=== PATIENT | male | born 1955 | race Caucasian/White ===

== ENCOUNTER 2020-01-23 09:35 | Day surgery (SDC) | payer OTHER, SELFPAY ==
[2020-01-20 11:31] VITALS: BMI 31.8
[2020-01-23] VITALS (7 sets, daily range): BP systolic 132–152; BP diastolic 92–102; PULSE 60–97; RESP 10–18; TEMP 36.3–37; O2SAT 95–99; BMI 31.4
[2020-01-23] MEDS: LACTATED RINGERS 1,000 ML 42 ML IV (10:15)
--- NOTE | 2020-01-23 12:09 | PM.PREOP ---
Pre-operative Note Interval Note History & Physical reviewed/Exam performed by Physician: Yes Changes to H&P: No
[2020-01-23] MEDS: CEFAZOLIN 2 GM/100 ML FROZ.PIGGY IV (13:20)
--- NOTE | 2020-01-23 13:34 | SUR.OPER ---
Supine on padded OR bed, head on pillow, arms secured on padded arm boards at <90 degrees abduction, legs uncrossed, safety belt at thigh, tape over blanket over lower legs.
[2020-01-23] MEDS: BUPIVACAINE 0.5% (PF) VIAL 30 ML INJ (13:43)
--- NOTE | 2020-01-23 14:30 | PM.OP.1 ---
Operative Date/Time/Diagnoses Date of procedure: 01/23/20 Time of procedure: 14:30 Pre-op diagnosis: Right inguinal hernia reducible Post-op diagnosis: same (Direct hernia) Procedure & Clinicians Procedure: Repair with plug and patch technique Same procedure as scheduled: Yes Indications: Symptomatic hernia Surgeon: Turner Deluca Click Yes if Unassisted: Yes Anesthesia Type: General Operative Notes Findings: Direct hernia Closure Type: primary Specimen(s): none sent Prosthetic devices, grafts, tissues, transplants, or devices: Mesh Estimated Blood Loss (mL): 5 Blood products transfused: none Procedure in detail: The patient was placed supine on the operating room table and underwent general LMA anesthesia. He was prepped and draped in the usual fashion. A transverse incision was made overlying the right internal ring and carried down to the level of the external oblique. The external oblique was opened parallel with its fibers through the external ring. The cord structures were elevated. The cremaster was opened proximally and search made for an indirect sac. No sac was found. The floor however was quite weekend and preperitoneal fat was protruding through it. The floor was opened the fat reduced a large plug placed in the defect. It was tacked into place with interrupted 0 Ethibond sutures. The floor was closed over it with the same material.. A patch was placed across the floor and tacked at the pubic tubercle, the posterior lamella of the anterior rectus sheath, the ilioinguinal ligament, and superior lateral to the cord. The opening was modified as necessary to prevent tight constriction of the cord. Sutures of 0 Tycron were used to secure the mesh. The external oblique was closed with a running 3 0 Vicryl. The subcu was closed with interrupted 3 0 Vicryl. The skin was closed with a running 4 0 Vicryl subcuticular stitch and Steri-Strips. Dressing was applied, the patient was awakened, and the patient was taken to the recovery area in good condition. Complications: none Post-operative Condition: stable Disposition: PACU Plan for aftercare: Follow-up in the office
[2020-01-23] MEDS: KETOROLAC 30 MG/ML VIAL IV (14:43)
[2020-01-23] MEDS: OXYCODONE/ACETAMINOPHEN 5/325 TABLET 1 TAB PO (14:54)
--- NOTE | 2020-01-23 16:23 | SUR.PHASEII ---
Pt sitting up in bed, alert and oriented. VSS. Drsg observed to be c/d/i. Pt reports pain level is tolerable at this time and denies any nausea. pt tolerating oral intake without any difficultly. pt awaiting to leave facility at this time. pt reports ferry leaves at 1800. bed in lowest position and call light given to pt. pt appears comfortable at this time. Reviewed dc instructions with pt, no further questions or concerns voiced.
== END 2020-01-23 17:25 | disposition home or self-care (01) ==
PROVIDERS: PCP Family Medicine Geriatric Medicine; Referring Provider Specialist; Visit Provider Specialist
PROC: (CPT 49505; principal; 2020-01-23 11:15)
DX: K40.90 Unilateral inguinal hernia, without obstruction or gangrene, not specified as recurrent (principal); I10 Essential (primary) hypertension
CPT/HCPCS: 49505; C1781; J0690; J1100; J1885; J2250; J2405; J2704; J3010